=== PATIENT | female | born 1950 | race Caucasian/White ===

== ENCOUNTER 2023-10-28 13:16 | Emergency (ER) | payer MEDICARE, OTHER, SELFPAY ==
[2023-10-28 13:17] VITALS: BP 154/91; PULSE 86; RESP 18; TEMP 36.1; O2SAT 97; BMI 32.0
--- NOTE | 2023-10-28 14:10 | CT_ITS ---
STUDY: CT ABDOMEN AND PELVIS WITH CONTRAST REASON FOR EXAM: Female, 72 years old. Blunt abd trauma yesterday post fall RADIATION DOSAGE (If Supplied By Facility): CTDIvol = ( 16.65 ) mGy, DLP = ( 948.62 ) mGycm TECHNIQUE: Transaxial images were obtained from the dome of the diaphragm to the symphysis pubis without oral contrast. IV 100mL Isovue-370 was administered. Sagittal and coronal images were reconstructed. Individualized dose optimization techniques were used for this CT. COMPARISON: None. FINDINGS: The visualized lung bases are unremarkable. The visualized portions of the heart are within normal limits. Large paraesophageal hiatal hernia Mild fatty infiltrated liver. Tiny cyst in left lobe. Bile ducts are not dilated.. Gallbladder not visualized which may be consistent with prior cholecystectomy Normal spleen. Normal pancreas. Normal bilateral adrenal glands. Normal right kidney. Small parapelvic cysts in the left kidney. Normal visualized stomach. Normal small intestine. Diffuse diverticular disease more pronounced in the descending and sigmoid colon without evidence for acute diverticulitis The appendix is visualized and appears normal. Mild atherosclerotic change of the aorta without evidence for aneurysm. Normal inferior vena cava. Normal retroperitoneum. Normal urinary bladder. Bilateral fat-containing inguinal hernias.. Lumbar spine demonstrates mild spondylosis. Grade 1 spondylolisthesis at L4-5. CT/Abdomen/Pelvis W IV Cont ONLY IMPRESSION: Diverticular disease of the colon without evidence for acute diverticulitis. No evidence for small bowel obstruction or other acute abnormality Electronically Signed: Ozzie Thorne MD at 16:53 EDT ,
--- NOTE | 2023-10-28 14:11 | EX.ED.DYSGE1 ---
HPI History of Present Illness Chief Complaint: General Illness Informant: patient and spouse/S.O. Onset/Context/Timing Onset: Today and Yesterday Context: Gradual Onset Timing: Continuous Current Severity: Mild Maximum Severity: Mild Narrative Narrative: 72-year-old female history of gastroesophageal reflux. Patient states that she tripped and fell yesterday her left upper quadrant hit a counter and the trash can fell right since that time. Denies vomiting or diarrhea. No fever or chills. No dysuria or melena. No chest pain or shortness of breath. Prior similar symptoms: No Recent Illness/Hospitalization: No PFSH PFSH Medical History Acid reflux Allergy/AdvReac Type Severity Reaction Status Date / Time No Known Allergies Allergy Verified 10/28/23 13:19 Family History no significant family his Surgical History no surgical history Social History household members: spouse housing: house current occupational status: retired Smoking Status: Never smoker ROS ROS ED ROS Narrative Denies recent illness. Constitutional Constitutional ED: Denies fever(s) Eyes Eyes: Denies blurry vision ENT ENT ED: Denies ear pain Cardiovascular Cardiovascular: Denies chest pain Respiratory/Chest Respiratory/Chest: Denies cough Gastrointestinal Gastrointestinal: Denies abdominal pain, constipation, diarrhea, melena, nausea or vomiting Genitourinary Genitourinary ED: Denies dysuria or hematuria Musculoskeletal Musculoskeletal: Denies arthralgias Integumentary Denies abscess Neurologic Neurologic: Denies headache(s) Psychiatric Psychiatric: Denies anxiety or depression Endocrine Endocrinology: Denies cold intolerance Hematologic/Lymphatic Hematologic/Lymphatic: Reports none Allergic/Immunologic Allergic/Immunologic ED: Denies mouth swelling EXAM Physical Exam Narrative Exam Narrative: Well-appearing 72-year-old female. Vital signs stable afebrile. Pulse ox 97% room air no hypoxia. H EENT exam unremarkable atraumatic. Pupils round reactive light. No signs of trauma to her face or scalp. Neck nontender. Back and spine nontender. Lungs clear to auscultation bilaterally. Heart regular rate and rhythm no murmur rate about 85. Chest wall ribs nontender. Abdomen is soft nondistended normal bowel sounds no peritoneal signs. She does have mild bruise left upper quadrant area. Prior well-healed midline incision from a cholecystectomy. Right upper and right lower quadrant unremarkable. Lower abdomen and pelvis nontender. Moving all 4 extremities. Nontender no deformity. 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 Normal dorsi plantarflexion. Normal range of motion. Neurologically she is awake alert no focal motor deficits. Back nontender. Spine nontender. Const Vital Signs: 10/28/23 13:17 10/28/23 13:48 10/28/23 17:17 Temperature 96.9 F L Temperature Source Temporal Pulse Rate 86 70 Respiratory Rate 18 16 Respiratory Pattern Normal Blood Pressure 154/91 H 148/89 H Blood Pressure Mean 112 108 Pulse Ox 97 99 Oxygen Delivery Method Room Air Room Air 10/28/23 17:23 Temperature 98 F Temperature Source Pulse Rate 70 Respiratory Rate 16 Respiratory Pattern Blood Pressure 148/89 H Blood Pressure Mean 108 Pulse Ox 99 Oxygen Delivery Method Positive well nourished and well developed; Negative for cachectic, contractures or unkempt General Appearance ED: well developed and NAD; Negative for unkempt, cachectic, contractures, cyanotic, diaphoretic or pallor Nutritional Appearance: Negative for cachectic HEENT Reports moist mucous membranes; Denies dry mucous membranes Negative for trauma or tenderness Mouth ED: No dry mucous membranes Mouth: No dry mucous membranes Eyes PERRL and EOMs intact bilaterally General Eye ED: Negative for pale conjunctiva or scleral icterus Neck no lymphadenopathy, supple and no JVD General: Negative for tenderness Lymph Lymphatic: Negative for other Chest Wall inspection of chest normal and palpation of chest normal Resp normal respiratory effort and clear to auscultation bilaterally Effort and Inspection: Negative for retractions Auscultation: Negative for rales, rhonchi, wheezes or diminished lung sounds Cardio regular rate, regular rhythm, S1 normal heart sound, S2 normal heart sound and no murmurs Palpation: Negative for palpable S3 or palpable S4 Rate: Negative for bradycardia or tachycardic Rhythm: Negative for abnormal rhythm GI normal to inspection, nondistended, normoactive bowel sounds, non-tender, non-distended and no masses Inspection: Negative for abdominal distention Auscultation: normoactive bowel sounds Palpation: soft; Negative for tender, guarding, mass or rebound tenderness present Back/Spine no CVA tenderness General Back: Negative for CVA tenderness Cervical Spine: Negative for cervical spine tenderness Thoracic Spine / Upper Back: Negative for thoracic spinal tenderness or paraspinal muscle tenderness Lumbar Spine / Lower Back: Negative for lumbar spinal tenderness Extremity normal to inspection General Extremety ED: Negative for edema, tenderness or other findings General Extremity: Negative for edema or other findings Neuro oriented x3 and CN's II-XII intact bilaterally Sensorium / Orientation: alert; Negative for orientation impaired, lethargic or stuporous Motor Exam: strength 5/5 throughout; Negative for general weakness or strength abnormal Psych mental status grossly normal Appearance: Negative for unkempt or other Attitude: No agitated Mood & Affect: Negative for depressed, anxious or tearful Skin no rashes or lesions noted, no wounds and skin turgor normal General Skin Exam: elasticity normal; Negative for jaundice or pallor Lesions: No lesion noted Rashes: No rashes noted Trauma: Negative for abrasion Wounds: Negative for wounds noted MDM MDM MDM Narrative Medical decision making narrative: 72-year-old female generally healthy tripped and fell yesterday hitting her left upper quadrant on a counter. Today just has not felt well. No specific complaint. Repeat exam at 5:20 PM unchanged. Benign exam. Patient I went over all of her test results. She is comfortable being discharged home. Follow-up with primary care physician Dr. Lois Adorno that she is not feeling better for the next week. History & Record Review Discussion w/independent historian: Patient and Family Additional record(s) reviewed:: No prior records Lab Data Attestation: I reviewed the patient's lab results. Lab results narrative: CBC normal. White count 8. H&H 12.5 and 39. Platelets 294. Electrolytes shows gap 8. BUN and creatinine are 19 and 0.7. Glucose 104. Liver enzymes normal. Lipase normal. UA normal. No white or red cells. No nitrates. CT abdomen pelvis shows no acute abnormality. Nor does a chest x-ray. Labs: Laboratory Results - last 24 hr 10/28/23 10/28/23 14:26 14:33 WBC 8.1 RBC 4.20 Hgb 12.5 Hct 39.2 MCV 93.3 MCH 29.8 MCHC 31.9 L RDW Std Deviation 45.1 H RDW Coeff of Gogo 13.2 Plt Count 294 MPV 8.7 Immature Gran % (Auto) 0.200 Neut % (Auto) 60.2 Lymph % (Auto) 29.6 [place] % (Auto) 8.7 Eos % (Auto) 1.2 Baso % (Auto) 0.1 Absolute Neuts (auto) 4.9 Absolute Lymphs (auto) 2.39 Nucleated RBC % 0 Sodium 140 Potassium 3.8 Chloride 106 Carbon Dioxide 26.0 Anion Gap 8 BUN 19 H Creatinine 0.75 Estim Creat Clear Calc 62.94 Est GFR (MDRD) Af Amer 97 Est GFR (MDRD) Non-Af 80 BUN/Creatinine Ratio 25.2 H Glucose 104 Calcium 9.4 Total Bilirubin 0.20 AST 11 L ALT 26 Alkaline Phosphatase 94 Total Protein 6.7 Albumin 3.7 Globulin 3.0 Albumin/Globulin Ratio 1.2 Lipase 40 Urine Color Yellow Urine Clarity Clear Urine pH 6.0 Ur Specific [place] 1.010 Urine Protein 15 H Urine Glucose (UA) Normal Urine Ketones Negative Urine Occult Blood 10 H Urine Nitrite Negative Urine Bilirubin Negative Urine Urobilinogen Normal Ur Leukocyte Esterase Negative Urine RBC 0-5 SEEN Urine WBC 0 SEEN Ur Squamous Epith Cells 0-5 SEEN Urine Bacteria 0 SEEN Urine Mucus 0 SEEN Radiography Chest X-Ray - ED: 1 View, Read by ED Physician, Read by Radiologist, Normal, Heart, Lungs, Mediastinum, Bony Structures, No Acute Disease and Chronic Changes Diagnostic Testing: Clinical Impression(s) from Imaging Studies Abdomen/Pelvis CT 10/28/23 14:10 IMPRESSION: Diverticular disease of the colon without evidence for acute diverticulitis. No evidence for small bowel obstruction or other acute abnormality Electronically Signed: Ozzie Thorne MD at 16:53 EDT , Chest X-Ray 10/28/23 14:32 IMPRESSION: Findings suggestive of hiatal hernia. Electronically Signed: Kalyan Barragan MD at 14:47 EDT , Chest x-ray, portable, single view, interpreted both by myself and the radiologist shows no acute abnormality. Hiatal hernia. Normal cardiac silhouette. Normal lung nettles. No fractures noted. Rhythm Strip Rhythm Strip: Sinus Rhythm Rate: 76 Ectopy: None EKG Initial EKG: Attestation: I personally reviewed and interpreted this EKG as follows: Interpretation: Sinus Rhythm and No Acute Injury Pattern Comments: Normal sinus rhythm. Rate 76. No acute signs of TN, ischemia or dysrhythmia. Discharge Plan Triage Chief Complaint: General Illness ED Provider: Ruy Guevara Dx/Rx/DC Orders Primary Care Provider: Lois Adorno Referrals: Lois Adorno MD [Primary Care Provider] - Print Language: Telugu
[2023-10-28 14:32] LABS: Absolute Lymphocyte Count 2.39 X10^3/uL (0.83-4.51); Absolute Neutrophil Count 4.9 X10^3/uL (2.0-7.7); Basophil# 0.01 X10^3/uL; Basophil% 0.1 % (0-1); Eosinophils% 1.2 % (0-5); Hematocrit 39.2 % (37-47); Hemoglobin 12.5 g/dL (12.0-15.0); Lymphocyte # 2.39 X10^3/ul (0.83-4.51); Lymphocyte % 29.6 % (19-41); Mean Corp Hgb Conc 31.9 g/dL (32-36); Mean Corpuscular Hgb 29.8 pg (27.0-32.0); Mean Corpuscular Volume 93.3 fL (81-99); Mean Platelet Vol. 8.7 fl (6.2-12.0); Monocyte% 8.7 % (0-10); NRBC Flagged by Analyzer 0 % (0-5); Neutrophil # 4.85 X10^3/uL (2.7-7.7); Neutrophil % 60.2 % (47-70); Platelet Count 294 K/mm3 (150-450); RBC Distribution Width CV 13.2 % (11.6-14.6); RBC Distribution Width SD 45.1 fl (35.1-43.9); White Blood Count 8.1 K/mm3 (4.4-11.0)
--- NOTE | 2023-10-28 14:32 | RAD_ITS ---
STUDY: X-RAY CHEST REASON FOR EXAM: Female, 72 years old. Weakness TECHNIQUE: Single AP portable view of the chest. COMPARISON: None. FINDINGS: The lungs are clear and expanded. There is no demonstrated pleural abnormality. Normal size heart. Normal mediastinum and eddie. Normal visualized pulmonary arteries. Normal visualized aortic arch and descending thoracic aorta. There are degenerative changes of the visualized thoracic spine. Normal visualized ribs, clavicles, and shoulders. I suspect a hiatal hernia. RAD/Chest 1 View (Portable) IMPRESSION: Findings suggestive of hiatal hernia. Electronically Signed: Kalyan Barragan MD at 14:47 EDT ,
[2023-10-28 14:36] LABS: Bacteria 0 SEEN /hpf (None Seen); Mucous, Urine 0 SEEN /hpf (<or=2+); White Blood Cells 0 SEEN /hpf (0-5)
[2023-10-28 14:38] LABS: Color, Urine Yellow (Yellow); Glucose, Dipstick Normal (Normal); Ketone-Dipstick Negative (Negative); Leukocyte Esterase-Dipstick Negative /ul (Negative); Nitrite-Dipstick Negative (Negative); Occult Blood-Urine 10 /ul (Negative); Protein-Dipstick 15 mg/dl (Negative); Urine Bilirubin Dipstick Negative (Negative); Urine Clarity Clear (Clear); Urine Urobilinogen Normal (Normal)
[2023-10-28 14:49] LABS: ALB/GLOB Ratio 1.2 RATIO (0.9-2.4); AST(SGOT) 11 U/L (15-37); Alanine Aminotransfer ALT/SGPT 26 U/L (13-56); Albumin, Serum 3.7 g/dL (3.2-5.0); Alkaline Phosphatase 94 U/L (45-117); Anion Gap 8 (5-15); BUN 19 mg/dL (7-18); BUN/Creat Ratio 25.2 RATIO (10-20); Calcium,Total 9.4 mg/dL (8.5-10.1); Chloride 106 mmol/L (98-107); Creatinine, Serum 0.75 mg/dL (0.55-1.02); EST Glomerular Filtration Rate 80 mL/min (>60); Est Glom Filt Rate - Afr Amer 97 mL/min (>60); Estimated Creatinine Clearance 62.94 ml/min; Glucose 104 mg/dL (74-106); Lipase 40 U/L (13-75); Potassium 3.8 mmol/L (3.5-5.1); Protein, Total 6.7 g/dL (6.4-8.2); Sodium Level 140 mmol/L (136-145)
[2023-10-28 14:53] LABS: Squamous Epithelial Cells - UA 0-5 SEEN /hpf (5-10)
[2023-10-28 14:54] LABS: Red Blood Cells-Urine 0-5 SEEN /hpf (0-5)
[2023-10-28 17:17] VITALS: BP 148/89; PULSE 70; RESP 16; O2SAT 99
[2023-10-28 17:23] VITALS: BP 148/89; PULSE 70; RESP 16; TEMP 36.6; O2SAT 99
== END 2023-10-28 17:41 | disposition home or self-care (01) ==
PROVIDERS: Emergency Provider Emergency Medicine; PCP Internal Medicine; Visit Provider Emergency Medicine
DX: S30.1XXA Contusion of abdominal wall, initial encounter (principal); K21.9 Gastro-esophageal reflux disease without esophagitis; Z90.49 Acquired absence of other specified parts of digestive tract; W01.190A Fall on same level from slipping, tripping and stumbling with subsequent striking against furniture, initial encounter; K44.9 Diaphragmatic hernia without obstruction or gangrene
CPT/HCPCS: 71045; 74177; 80053; 81001; 83690; 85025; 93005; 99283; Q9967; A4216